=== PATIENT | male | born 1975 | race Caucasian/White ===

== ENCOUNTER → 2016-06-22 | Outpatient (REF) | payer OTHER | LOC: M SFHCLERA 13:38 | PROVIDERS: ATTEND Physician Assistant | DX: Z20.818 Contact with and (suspected) exposure to other bacterial communicable diseases (principal) ==

== ENCOUNTER → 2020-11-20 | Outpatient (CLI) | payer OTHER ==
[2020-11-20 17:01] LABS: ALBUMIN 3.8 GM/DL (3.2-5.2); ALT/SGPT 31 U/L (12-78); BILIRUBIN,TOTAL 0.5 MG/DL (0.2-1.0); BLOOD UREA NITROGEN 17 MG/DL (7-18); CALCIUM LEVEL 8.8 MG/DL (8.5-10.1); CARBON DIOXIDE LEVEL 31 MEQ/L (21-32); CHLORIDE LEVEL 110 MEQ/L (98-107); CHOLESTEROL LEVEL 184 MG/DL (<200); CHOLESTEROL RISK RATIO 4.842 (<5); CREATININE FOR GFR 0.98 MG/DL (0.70-1.30); GLOMERULAR FILTRATION RATE > 60.0 (>60); GLUCOSE, FASTING 93 MG/DL (70-100); HDL CHOLESTEROL 38 MG/DL (>40); LDL CHOLESTEROL 116 MG/DL (<100); NON-HDL-C 146 MG/DL; POTASSIUM SERUM 4.2 MEQ/L (3.5-5.1); SODIUM LEVEL 143 MEQ/L (136-145); TOTAL PROTEIN 6.8 GM/DL (6.4-8.2); TRIGLYCERIDES LEVEL 149 MG/DL (<150)
== END ==
LOC: M WUC 10:28
PROVIDERS: ATTEND Family Medicine
DX: Z13.220 Encounter for screening for lipoid disorders (principal)

== ENCOUNTER → 2021-01-01 | Outpatient (CLI) | payer BC, OTHER ==
--- NOTE | 2021-01-01 08:06 | REP ---
INDICATION: ABD PAIN COMPARISON: None. TECHNIQUE: Limited directed B-mode ultrasound examination using linear high-frequency transducer.. FINDINGS: Ultrasound examination demonstrates 2 small periumbilical fat containing relatively non reducible hernias with underlying defects through the rectus sheath measuring 1.4 cm and 1.8 cm respectively. IMPRESSION: Two small fat containing periumbilical hernia is noted. <Electronically signed by Efe Garay > 01/01/21 0802
== END ==
LOC: M RAD 07:20
PROVIDERS: ATTEND Family Medicine
DX: R10.33 Periumbilical pain (principal); K42.9 Umbilical hernia without obstruction or gangrene

== ENCOUNTER → 2021-02-22 | Outpatient (CLI) | payer BC, OTHER | LOC: M LABSMTC 09:17 | PROVIDERS: ATTEND Anesthesiology | DX: Z01.818 Encounter for other preprocedural examination (principal); Z20.828 Contact with and (suspected) exposure to other viral communicable diseases ==

== ENCOUNTER 2021-02-27 06:01 | Day surgery (SDC) | payer BC, OTHER ==
[~2021-02-27] VITALS: Ht 185.4 cm; Wt 149.3 kg
[~2021-02-27 06:01] MED LIST: LR 1,000 ML IV ONE
[2021-02-27] MEDS ORDERED: BUPIVACAINE HCL 0.25% 30ML VIAL As Ordered ONE (07:06)
[2021-02-27] MEDS ORDERED: LIDOCAINE 1% SDV 30ML VIAL As Ordered ONE (07:06)
[2021-02-27] MEDS ORDERED: REMIFENTANIL 1MG 3ML VIAL As Ordered ONE ×4 (07:16→10:27)
[2021-02-27] MEDS ORDERED: MIDAZOLAM INJ 2MG/2ML VIAL (J2250 PER 1MG) As Ordered ONE (07:16)
[2021-02-27] MEDS ORDERED: fentaNYL 100 MCG/2 ML INJECTION As Ordered ONE (07:18)
[2021-02-27] MEDS ORDERED: dexameTHASONE 4 MG/ML 1ML VIAL (J1100 PER 1MG) As Ordered ONE ×2 (07:18→07:19)
[2021-02-27] MEDS ORDERED: ONDANSETRON 4MG/2ML VIAL As Ordered ONE (07:18)
[2021-02-27] MEDS ORDERED: LIDOCAINE 2% 100MG/5ML SDV (FOR ANES.) As Ordered ONE (07:21)
[2021-02-27] MEDS ORDERED: propofoL 200 MG/20 ML VIAL As Ordered ONE ×7 (07:21→10:31)
[2021-02-27] MEDS ORDERED: ROCURONIUM BROMIDE 50 MG/5 ML VIAL As Ordered ONE ×3 (07:22→10:07)
[2021-02-27] MEDS ORDERED: propofoL 500 MG/50 ML VIAL As Ordered ONE ×5 (07:22→09:53)
[2021-02-27] MEDS ORDERED: ceFAZolin 2 GM/D5W 50 ML IV BAG (J0690 PER 500MG) As Ordered ONE (07:33)
[2021-02-27] MEDS ORDERED: LACRILUBE (AKWA TEARS) OPHTH OINT 3.5 GM As Ordered ONE (07:52)
[2021-02-27] MEDS ORDERED: ceFAZolin SOD 2 GM in IV 1 EA IV ONE (07:55)
[2021-02-27] MEDS ORDERED: ACETAMINOPHEN 1000MG 100ML IV BTL (OFIRMEV) (J0131 PER 10MG) As Ordered ONE (08:23)
[2021-02-27] MEDS ORDERED: HYDROmorphone HCL 2MG/ML 1ML VIAL As Ordered ONE (08:29)
[2021-02-27] MEDS ORDERED: KETOROLAC 60MG 2ML VIAL As Ordered ONE (08:38)
[2021-02-27] MEDS ORDERED: SUGAMMADEX SODIUM 500 MG/5 ML VIAL (BRIDION) As Ordered ONE (08:38)
[2021-02-27] MEDS ORDERED: KETAMINE HCL 200 MG/20 ML VIAL As Ordered ONE (08:49)
[2021-02-27] MEDS ORDERED: oxyCODONE 5MG TAB PO PRN (11:40)
[2021-02-27] MEDS ORDERED: fentaNYL 100 MCG/2 ML INJECTION IV PRN (11:40)
[2021-02-27] MEDS ORDERED: ONDANSETRON 4MG/2ML VIAL IV PRN (11:40)
[2021-02-27] MEDS ORDERED: LR 1,000 ML IV SCH (11:40)
[2021-02-27] MEDS ORDERED: HYDROMORPHONE HCL 0.5 MG/ 0.5 ML SYRINGE (J1170 PER 1) IV PRN (11:40)
[2021-02-27] MEDS ORDERED: METOCLOPRAMIDE INJ 10MG/2ML VIAL (J2765 PER 1) IV PRN (11:40)
[2021-02-27] MEDS ORDERED: NORCO, ANEXSIA 5/325MG TABLET (HYDROcodone/ACETAMINOPHEN) PO PRN ×2 (11:45)
[2021-02-27] MEDS ORDERED: KETOROLAC 30 MG/ML 1ML VIAL IV PRN (11:45)
[2021-02-27 13:47] VITALS: BP 120/71
== END 2021-02-27 13:47 | disposition home or self-care (01) ==
LOC: M SDC 06:01
PROVIDERS: ATTEND Surgery
DX: K42.9 Umbilical hernia without obstruction or gangrene (principal); K43.9 Ventral hernia without obstruction or gangrene; E66.9 Obesity, unspecified
CPT/HCPCS: 49653; C1781; J0131; J0690; J1100; J1170; J1885; J2250; J2405; J3010; S2900

== ENCOUNTER → 2022-05-02 | Outpatient (CLI) | payer BC, OTHER ==
[2022-05-02 16:25] LABS: BASO # 0.1 10^3/uL (0.0-0.2); BASO % 0.6 % (0.0-1.0); EOS # 0.2 10^3/uL (0.0-0.5); EOS % 2.7 % (0.0-3.0); HEMATOCRIT 46.3 % (42.0-52.0); HEMOGLOBIN 15.2 g/dl (13.5-17.5); LYMPH # 1.8 10^3/uL (1.5-5.0); LYMPH % 20.5 % (24.0-44.0); MEAN CORPUSCULAR HEMOGLOBIN 29.8 pg (27.0-33.0); MEAN CORPUSCULAR HGB CONC 32.8 g/dl (32.0-36.5); MEAN CORPUSCULAR VOLUME 90.8 fl (80.0-96.0); MONO # 0.9 10^3/uL (0.0-0.8); MONO % 9.8 % (2.0-8.0); NEUTROPHILS # 5.8 10^3/uL (1.5-8.5); NEUTROPHILS % 66.1 % (36.0-66.0); PLATELET COUNT, AUTOMATED 199 10^3/uL (150-450); WHITE BLOOD COUNT 8.8 10^3/uL (4.0-10.0)
[2022-05-02 16:37] LABS: HEMOGLOBIN A1c 5.1 % (4.0-6.0)
[2022-05-02 17:06] LABS: ALBUMIN 3.8 G/DL (3.2-5.2); ALKALINE PHOSPHATASE 81 U/L (46-116); ALT/SGPT 33 U/L (7.0-40); AST/SGOT 23 U/L (<34); BILIRUBIN,TOTAL 0.5 MG/DL (0.3-1.2); BLOOD UREA NITROGEN 17 MG/DL (9-23); CALCIUM LEVEL 9.1 MG/DL (8.5-10.1); CARBON DIOXIDE LEVEL 29 MMOL/L (20-31); CHLORIDE LEVEL 104 MMOL/L (98-107); CHOLESTEROL LEVEL 202 MG/DL (<200); CHOLESTEROL RISK RATIO 5.94 (<5); CREATININE FOR GFR 1.06 MG/DL (0.70-1.30); GLOMERULAR FILTRATION RATE > 60.0 (>60); GLUCOSE, FASTING 91 MG/DL (60-100); LDL CHOLESTEROL 104.2 MG/DL (<100); NON-HDL-C 168 MG/DL; POTASSIUM SERUM 4.3 MMOL/L (3.5-5.1); SODIUM LEVEL 139 MMOL/L (136-145); TOTAL PROTEIN 6.8 G/DL (5.7-8.2); TRIGLYCERIDES LEVEL 319 MG/DL (<150)
== END ==
LOC: M WUC 13:14
PROVIDERS: ATTEND Family Medicine
DX: R10.11 Right upper quadrant pain (principal); E66.01 Morbid (severe) obesity due to excess calories

== ENCOUNTER → 2022-06-14 | Outpatient (CLI) | payer BC, OTHER | LOC: M RAD 07:34 | PROVIDERS: ATTEND Family Medicine | DX: R10.11 Right upper quadrant pain (principal); K76.0 Fatty (change of) liver, not elsewhere classified ==